=== PATIENT | female | born 1955 | race Caucasian/White ===

== ENCOUNTER 2018-03-22 12:38 | Emergency (ER) | payer MEDICAID | END 2018-03-22 13:20 | disposition home or self-care (01) | LOC: E/R 12:38 | DX: H60.503 Unspecified acute noninfective otitis externa, bilateral (principal); I10 Essential (primary) hypertension | CPT/HCPCS: 99283; Z7502 ==

== ENCOUNTER 2018-09-11 08:56 | Emergency (ER) | payer MEDICAID ==
[2018-09-11 09:47] LABS: ADD MAN DIFF? NO
[2018-09-11 09:54] LABS: BASOPHIL # 0.1 10^3/ul (0.0-0.1); BASOPHILS % 0.6 % (0.0-2.0); EOSINOPHILS # 0.4 10^3/ul (0.0-0.5); HEMATOCRIT 45.9 % (37.0-47.0); HEMOGLOBIN 15.1 g/dl (12.0-16.0); LYMPHOCYTES # 3.1 10^3/ul (0.8-2.9); LYMPHOCYTES % 32.2 % (15.0-51.0); MEAN CORPUSCULAR HEMOGLOBIN 30.8 pg (29.0-33.0); MEAN CORPUSCULAR HGB CONC 32.9 g/dl (32.0-37.0); MEAN CORPUSCULAR VOLUME 93.7 fl (82.0-101.0); MEAN PLATELET VOLUME 10.6 fl (7.4-10.4); MONOCYTE # 0.5 10^3/ul (0.3-0.9); MONOCYTES % 4.9 % (0.0-11.0); NEUTROPHIL # 5.6 10^3/ul (1.6-7.5); PLATELET COUNT 338 10^3/UL (140-415); RED CELL DISTRIBUTION WIDTH 12.9 % (11.5-14.5)
[2018-09-11 09:54] LABS: WHITE BLOOD COUNT 9.7 10^3/ul (4.8-10.8)
[2018-09-11] MEDS: SOD CHLORIDE 0.9% 1,000 ML IV (09:56)
[2018-09-11] MEDS: CLINDAMYCIN 300 MG/D5W (PMX) 50 ML IVPB (09:56)
[2018-09-11 10:11] LABS: ALANINE AMINOTRANSFERASE 24 IU/L (13-69); ALBUMIN 4.2 g/dl (3.3-4.9); ALKALINE PHOSPHATASE 117 IU/L (42-121); ANION GAP 13 (5-13); ASPARTATE AMINO TRANSFERASE 38 IU/L (15-46); BILIRUBIN,INDIRECT 0.4 mg/dl (0-1.1); BILIRUBIN,TOTAL 0.4 mg/dl (0.2-1.3); BLOOD UREA NITROGEN 16 mg/dl (7-20); CALCIUM 9.1 mg/dl (8.4-10.2); CARBON DIOXIDE 24 mmol/L (21-31); CHLORIDE 107 mmol/L (97-110); Estimated GFR > 60 mL/min (>60); GLUCOSE 184 mg/dl (70-220); POTASSIUM 4.1 mmol/L (3.5-5.1); SODIUM 144 mmol/L (135-144); TOTAL PROTEIN 8.4 g/dl (6.1-8.1)
[2018-09-11 10:21] LABS: INR 0.88; PT RATIO 0.9
[2018-09-11 10:22] LABS: PARTIAL THROMBOPLASTIN TIME 32.2 Sec (23.0-35.0)
[2018-09-11 10:24] LABS: HEMOGLOBIN A1C 5.6 % (0-5.9)
[2018-09-11] MEDS: CEFAZOLIN 1 GM/50 ML (PMX) 50 ML IVPB (10:58)
== END 2018-09-11 11:54 | disposition home or self-care (01) ==
LOC: E/R 08:56
DX: L03.116 Cellulitis of left lower limb (principal); S90.512A Abrasion, left ankle, initial encounter; I10 Essential (primary) hypertension; M79.672 Pain in left foot; X58.XXXA Exposure to other specified factors, initial encounter; Y92.9 Unspecified place or not applicable
CPT/HCPCS: 73610; 80053; 83036; 85025; 85610; 85730; 87070; 96374; 96375; 99284-25